=== PATIENT | female | born 1990 | race African-American/Black ===

== ENCOUNTER 2017-10-12 01:58 | Observation (INO) | payer OTHER ==
[2017-10-12 02:20] LABS: #Basophils 0.1 thou/uL (0.0-0.2); #Eosinphils 0.2 thou/uL (0.0-0.7); #Lymphocytes 1.7 thou/uL (1.20-3.40); #Monocytes 0.6 thou/uL (0.11-0.59); #Neutrophils 5.9 thou/uL (1.40-6.50); %Basophils 0.8 % (0.0-1.0); %Lymphocytes 20.5 % (21.0-51.0); %Neutrophils 69.8 % (42.0-75.0); Hemoglobin 11.3 g/dL (12.0-16.0); Mean Corpuscular Hemoglobin 31.8 pg (27.0-31.0); Mean Corpuscular Volume 90.9 fL (78.0-98.0); Mean Platelet Volume 7.9 fL (7.4-10.4); Platelet Count 169 thou/uL (130-400); RBC Distribution Width 12.7 % (11.5-14.5); Red Blood Cell (RBC) Count 3.55 mill/uL (4.20-5.40); White Blood Cell (WBC) Count 8.5 thou/uL (4.8-10.8)
[2017-10-12 02:21] LABS: BHCG - Serum POSITIVE (NEGATIVE); Pregs Control Background? CLEAR/WHITE (CLR/WHITE); Pregs Control Bar Appear? YES (CONTROL BAR)
[2017-10-12] MEDS ORDERED: Naloxone HCl 2 mg/2 ml Syringe ONE (02:30)
[2017-10-12 02:37] LABS: Acetaminophen Less than 6.0 mcg/mL (10.0-30.0); Alcohol Less than 10 mg/dL (Less than 10); CK (CPK) 330 U/L (29-168); Lipase 25 U/L (8-78); Salicylate Less than 8.0 mg/dL (15.0-30.0)
[2017-10-12 02:38] LABS: ALT (SGPT) 19 U/L (8-55); AST (SGOT) 19 U/L (5-34); Albumin 3.6 g/dL (3.5-5.0); Alkaline Phosphatase 67 U/L (40-150); Anion Gap 12 mmol/L (10-20); BUN (Urea Nitrogen) 6 mg/dL (7.0-18.7); Bilirubin, Total 0.6 mg/dL (0.2-1.2); Calc. Creatinine Clearance 0 mL/min (70-130); Calcium 9.1 mg/dL (7.8-10.44); Carbon Dioxide 24 mmol/L (22-29); Chloride 104 mmol/L (98-107); Estimated GFR-MDRD Greater than 90; Globulin 3.5 g/dL (2.4-3.5); Glucose 92 mg/dL (70-105); Potassium 3.2 mmol/L (3.5-5.1); Protein, Total 7.1 g/dL (6.0-8.3); Sodium 137 mmol/L (136-145)
[2017-10-12 03:09] LABS: Bilirubin Negative (Negative); Blood, Urine Negative (Negative); Clarity CLOUDY (Clear); Glucose, Urine (Dipstick) Negative (Negative); Leukocyte Moderate (Negative); Nitrite Negative (Negative); Protein, Urine (Dipstick) 30 mg/dL (Neg-Trace); Specific Gravity, Urine 1.022 (1.002-1.036)
[2017-10-12 03:10] LABS: Pathc Cast-AUWi Flag 0.72 (0-2.49); Squamous Epithelial 0-3 HPF (0-3)
[2017-10-12 03:19] LABS: Amphetamine Detected (NotDetected); Barbiturates Screen Not Detected (NotDetected); Benzodiazepine Screen Detected (NotDetected); Cocaine Metabolite Screen Detected (NotDetected); Medtox Control Line Valid? VALID (VALID); Medtox Reader # READER 1; Methadone Not Detected (NotDetected); Methamphetamine Detected (NotDetected); Opiate Screen Not Detected (NotDetected); Oxycodone Screen Not Detected (NotDetected); Phencyclidine (PCP) Not Detected (NotDetected); THC/Cannabinoid Screen Detected (NotDetected); Tricyclic Screen Detected (NotDetected)
[2017-10-12 03:29] LABS: Hyaline Casts/LPF NONE SEEN LPF (0-3 Hyaline); RBC/HPF 0-3 HPF (0-3)
[2017-10-12 03:30] LABS: Bacteria/HPF Rare-Few HPF (None Seen)
[2017-10-12] MEDS ORDERED: cefTRIAXone\\ROCEPHIN 1 GM VIAL ONE (04:16)
[2017-10-12] MEDS ORDERED: Sodium Chloride 0.9% 100 ML ONE (04:16)
--- NOTE | 2017-10-12 05:59 | PDOC.EVN ---
Event Note - Event Note Event Note: BRIEF ACCEPT NOTE FROM ER/HISTORY AND PHYSICAL I recieved a call from Dr Rapp (ER ED) at approx 0500 (prior to me attending another delivery) that Ms Prescott had arrived to the ED with attempted suicide attempt. 26 yo with limited HX due to state. UTOX positive for cocaine, THC, TCA, benzos. Time of injection and amount unclear. She has been cleared by ER. Doppler FHTs there were normal. No evidence PTL or abruption at this time. Poison control aware and so is [facility]. [facility] will see her to assess transfer after our observation time is complete. I have discussed case with our rim fire charger operator and Dr Rapp. We will transfer to L&D for extended OBS to make sure PTL does not start, and watch BPs. She did not recieve any medication reveral in ED but did get Rocephin IV for possible UTI. We will assess which labs are needed in L&D but include all routine OB and possibly VP3, GC/Chl. Unsure who were OBGYN is, if any. Awaiting patient arrival.
--- NOTE | 2017-10-12 07:24 | PDOC.LDHP ---
Labor and Delivery H&P Chief complaint: other (Here s/p multidrug use/attempted suicide) HPI: Please see my interim H&P note previously. MR aware that the patient is here. Patient states she "never wanted this baby". Took "2 bars of Xanax". She was found in her sister's car...brought in by EMS. She does not know EDC. Suspected 24 weeks? 26 yo ...father of baby not involved.No VB, no CTX. Saw a "female doctor" at [facility] earlier in this but stopped going. She states her given due date was 01/21...placing her at 25 weeks 4 days now Patient is able to answer questions but still somewhat sedated. Current gestational age (weeks): 25 (4 days) Due date: 01/21/18 Grav: 2 OB History Details: prior CS x [address] Summers who was at [facility] then. Current complications: other (limited PNC) Current medications: pre- vitamins, other (has "Anxiety Meds" when needed) Previous surgical history: low tranverse CS (2012) Allergies/Adverse Reactions: Allergies Allergy/AdvReac Type Severity Reaction Status Date / Time No Known Allergies Allergy Unverified 03/07/13 20:40 Social history: drug use (See lab UDS screen) - Physical Exam Vital signs reviewed and normal: yes General: NAD Heart: RRR Lungs: CTAB Abdomen: gravid FHT: variability present (reactive for EGA) Cherry Log contractions every: no contractions - Assessment 25 weeks 4 days, prior CS X1 s/p drug overdose. Apparently, was found by EMS and brought in. She was in a parked car. No evidence abruption or elevated pressures at this time. No VB. - Plan Plan: observation in L&D, other (We will observe for today until patient more alert. I have ordered VP3, GC/Cgl vaginal, routine OB labs. Sono has been ordered and results pending. [facility] needed for disposition.)
[2017-10-12] MEDS: Lactated Ringer's 1,000 ML IV SCH ×2 (07:29→17:54)
[2017-10-12 07:32] LABS: HIV (1/2) Antibody/Antigen Non-Reactive (NonReactive); HIV 1/2 INDEX 0.08 S/CO (<1.00); Syphilis Antibody Nonreactive (Nonreactive); Syphilis Antibody Index 0.14 S/CO (<1.00 Non-Reactive)
--- NOTE | 2017-10-12 07:53 | PDOC.EVN ---
Event Note - Event Note Event Note: CHONGO report verbal by on-call MD: Per radiology, composite EGA 24 weeks 5 days but HC is abnormally small at 1% tile and BPD is 3%tile. AC is 53% and FL is 35%. This raises concern for microcephally. Will need MFM eval after clearance here.
[2017-10-12 09:15] VITALS: BMI 41.9
--- NOTE | 2017-10-12 09:31 | ULT ---
PRELIMINARY REPORT/[facility]/EMERGENTY AFTER-HOURS PROCEDURE Addendum created by Rayna Sadler MD on 10/12/2017 7:53 AM Central Time ([place] & [place]) Results of this examination were communicated by phone to Dr. Vasquez at 7:46 AM CDT on 10/12/2017, with the recei vin practitioner acknowledging understanding of exam results. Gross disproportion of cranial biometric measurements in comparison to abdominal circumference and fe mur length was discussed. Initial Report created on 10/12/2017 7:38 AM Central Time ([place] & [place]) US Uterus, Limited CLINICAL HISTORY: 26 years old, female; Signs and symptoms; Lmp or gestational age (in weeks): 25wks; Antepartum compli cations; Other: Possible overdose on xanax, +for multiple drugs; TECHNIQUE: Real-time ultrasound of the maternal uterus (limited) with image documentation. COMPARISON: No relevant prior studies available. FINDINGS: Fetus: Single live intrauterine gestation is present. Gestational age: Average ultrasound age is 24 weeks 5 days with DAGO of 01/27/2018. Last menstrual per iod is reported as 04/16/2017 corresponding to gestational age of 25 weeks 4 days with DAGO of 018. EFW: Estimated weight is 811 g corresponding to 24 weeks 3 days, 34%. Position: Position is cephalic. Heart rate: Cardiac activity is detected with heart rate of 139 beats per minute. Biometrics: Umbilical artery resistive index is 0.75. S/D. ratio is 3.8. Three-vessel umbilical cord anatomy is visualized. Femur length is 4.7 cm corresponding to 25 weeks 4 days, 35%. The cisterna mag na measures 0.6 cm. Transverse cerebellar diameter is 2.8 cm. Intracranial lateral ventricle diameter is 0.4 cm. Biparietal diameter is 5.8 cm corresponding to 23 weeks 6 days, 3%. Head circumference is 21.6 cm corresponding to 23 weeks 5 days, 1%. Abdominal circumference is 21.7 cm corresponding to 25 weeks 6 days, 52%. Head circumference/abdominal circumference is below the 5th percentile. Placenta: The placenta is anterior. There is no retro-placental collection and no evidence of placent a previa. Color Doppler interrogation of the placenta is not performed. Amniotic fluid: Amniotic fluid index is 14.3 cm. Cervix: Cervical length is approximately 5.3 cm as measured by the interpreting radiologist. There is no cervical funneling. The cervical canal is approximately 0.2 cm diameter. Bladder: The maternal urinary bladder is normal as visualized. Other findings: The diaphragm, abdominal wall at the cord insertion, and facial structures are not evaluated. As visualized, kidneys are normal without hydronephrosis. Longitudinal imaging of the spine is provided. Visualized spine segments appear anatomic in this plan e. Normal situs is demonstrated. 4 cardiac chambers are visualized but evaluation is suboptimal on single provided image. The urinary bladder is anatomic. IMPRESSION: 1. Single live intrauterine gestation with normal heart rate. Average ultrasound age is 24 week s 5 days, in comparison with gestational age by LMP of 25 weeks 4 days. 2. Head circumference and biparietal diameter are below the mean, at the 1st and 3rd percentiles resp ectively. HC/AC ratio is below the 5th percentile. This warrants close surveillance imaging and prena jaron obstetrical care given history of maternal drug exposure. 3. anatomic survey as outlined in detail above. Notably four-chamber cardiac anatomy is seen bu t suboptimally visualized. The diaphragm, abdominal wall at the cord insertion and facial struc tures are not evaluated. 4. Normal amniotic fluid index. Thank you for allowing us to participate in the care of your patient. Dictated and Authenticated by: Rayna Sadler MD 10/12/2017 7:38 AM Central Time ([place] & [place]) FINAL REPORT EMERGENT AFTER HOURS OB ULTRASOUND: FINDINGS/IMPRESSION: I agree with the findings and impression given in the preliminary report per [facility] physician. There is a single live intrauterine with estimated age of 24 weeks 5 days. An incomplete s urvey was performed which is unremarkable. There is slight discrepancy in the biometric measur ements. POS: [facility]
[2017-10-12] MEDS: metroNIDAZOLE 500 MG TAB PO SCH ×3 (11:43→21:30)
--- NOTE | 2017-10-12 12:08 | PRG ---
DATE OF SERVICE: 10/12/2017 PRIMARY OB: None. HISTORY OF PRESENT ILLNESS: The patient is a 26-year-old female with an intrauterine at 25 weeks and 4 days by an ultrasound today who was admitted to the hospital after being found obtunded in a parked car. Evaluation showed multiple drugs on board including tricyclic antidepressants, methamphetamines, cocaine, marijuana, and benzodiazepines. There is concern that the patient may have attempted to take her life and [facility] was contacted for evaluation. In my conversation with the patient, the patient was able to answer questions with some effort; however, easily fell back to sleep. She reports that she was very depressed yesterday and she took a lot more drugs than she normally takes and then went driving in her sister's car. The patient would not answer whether she is trying to take her life or not. She does report a long history of drug use since the of her mother about 3-4 years ago. She is 25 weeks and has no desire to keep the . She has very little recollection of any other events yesterday. Vital signs on my shift here in the hospital last 3 hours have remained stable. She has had a heart rate in the 70s-90s with O2 sats 98%-99% on room air. Last blood pressure was 130/63 at 10:30 this morning. Patient has eaten breakfast or has had something to eat during her stay. [facility] has come now to speak with Ms. Prescott. Ms. Prescott has shared with the [facility] individual that she did try taking as many drugs that she had access to try to end her life. [facility] at this time is attempting to help find placement for inpatient care for Ms. Prescott. From a medical standpoint, she is stable. Labs did return back with positive for Trichomonas and bacterial vaginosis, which can be treated with an oral antibiotic. I will place her on 500 mg of metronidazole to be taken twice a day for the next week. Her other lab work has all returned negative. Blood type is AB positive. Syphilis is nonreactive. HIV is nonreactive. LABORATORY DATA: TSH is 2.66 within normal limits. LFTs within normal limits. Her spot blood sugar is 92. Her creatinine is 0.87, hemoglobin is 11.3, hematocrit 32.3, platelets 169,000. IMAGING: Ultrasound report came back with measurements and is noted to have a biparietal diameter disproportionately small to the rest of the measurements at first and third percentile for head circumference and biparietal diameter ASSESSMENT AND PLAN: The patient is a 26-year-old female who was brought to the emergency room for non-responsiveness and was found to have multiple drugs in her system. There is concern that the patient attempted suicide per the interview with the individual from [facility]. She has intrauterine at 25 weeks with a disproportionately small head and may have microcephaly and will need followup imaging to confirm these findings and likely a maternal medicine on consultation for further recommendations. [facility] is attempting right now to find inpatient care for this individual for her emotional and mental state. Patient has no care established at this time; however, she did see [facility]'s Jeremiah a couple times early in this . The patient's obstetric care does not require any immediate outpatient care at this time, though she does no need to establish care with an OB provider and likely will be referred to Maternal Medicine. GERARDO
[2017-10-12] MEDS ORDERED: Acetaminophen 500 MG TAB PO PRN (15:10)
[2017-10-12] MEDS ORDERED: Potassium Chloride 20 MEQ TAB PO SCH (21:00)
[2017-10-12 21:18] VITALS: BP 122/80; TEMP 98.3
[2017-10-13] MEDS ORDERED: Prenatal Vitamin 1 TAB PO SCH (09:00)
--- NOTE | 2017-10-13 18:29 | DIS ---
DATE OF ENCOUNTER: 10/12/2017. DATE OF ADMISSION: 10/12/2017. HOSPITAL COURSE: The patient is a 26-year-old female who was brought in by EMS to the emergency room after being found somnolent. She was noted to have multiple drugs in her system and after being cleared in the emergency room, was brought to Labor and Delivery for evaluation. The patient ultimately admitted to [facility] attempt and yesterday evening was transferred to [facility] yesterday evening. The patient's vital signs at time of discharge was 122/80, 98.3 is the temperature, pulse is 78, satting 99% on room air. At my last encounter, the patient was alert, oriented, talking on the phone, enjoying some time with her family. The patient had changed from not wanting to be admitted to being accepting as the help that she was being offered. The patient was diagnosed during her stay with Trichomonas and bacterial vaginosis and was placed on metronidazole 500 mg to be taken twice a day for the next week. GC and chlamydia are still pending. Her rubella status is still pending. Patient was discharged to the [facility] around 10:00 last night. The only prescription that she will be required to take at this time is metronidazole 500 mg twice a day. She has been given instructions to follow up with her primary OB. Of note, during her stay, the patient had a evaluation including an ultrasound for anatomy and growth and was noted to have some concern on the findings of her head. The baby's head was smaller than normal. I will need to repeat this ultrasound to confirm findings. I did a bedside ultrasound and found that the head and biparietal diameter were only a week behind the abdomen. GERARDO
[2017-10-15 20:16] LABS: Chlamydia by PCR Not Detected (NotDetected); GC by PCR Not Detected (NotDetected)
== END 2017-10-12 22:51 ==
LOC: ERS 01:58 → L&D 07:30 → T4-B 13:32
PROVIDERS: ADMIT Hospitalist; ATTEND Hospitalist
DX: O9A.212 Injury, poisoning and certain other consequences of external causes complicating pregnancy, second trimester (principal); T50.902A Poisoning by unspecified drugs, medicaments and biological substances, intentional self-harm, initial encounter; Z3A.25 25 weeks gestation of pregnancy
CPT/HCPCS: 36415; 59025; 76815; 80053; 80306; 80307; 81003; 81015; 82550; 83690; 84443; 84703; 85025; 86762; 86780; 86900; 86901; 87389; 87480; 87491; 87510; 87591; 87660; 93005; 96361; 96365; 96375; A4353; G0378; J0696; J2310; J7050

== ENCOUNTER 2018-01-16 11:15 | Day surgery (SDC) | payer OTHER ==
[2018-01-16 11:54] VITALS: BP 118/72; TEMP 99.3; BMI 46.3
--- NOTE | 2018-01-16 18:44 | PRG ---
DATE OF SERVICE: 01/16/2018 PRIMARY BARGE MASTER: Dr. Tesha Hawk at [facility]. CHIEF COMPLAINT: Abdominal pains. HISTORY OF PRESENT ILLNESS: The patient is a 27-year-old G2, P1 female with an intrauterine pregnanc y at 39 weeks and 2 days who is presenting today with lower abdominal pain and lower back pain that i s sharp in nature and exacerbated by activity. The patient denies uterine contractions or labor pain s. The patient just was recommended to come after calling the clinic. The patient denies leakage of fluid or vaginal bleeding. She reports good movement. She denies any fever, fall, headache, chest pain, shortness of breath. She has had some nausea and vomiting in recent days. Denies diarrh ea or constipation. The patient denies urinary urgency. She denies musculoskeletal pains. PAST MEDICAL HISTORY: Negative. PAST SURGICAL HISTORY: Prior . SOCIAL HISTORY: Denies drug, alcohol or tobacco use. MEDICATIONS: The patient is taking medications for depression and is under the care of [facility], unsure what that is. ALLERGIES: TRAMADOL. OB LABS: Blood type is AB positive, antibody screen is negative. RPR is reactive in the first trime ster. HIV is nonreactive in the first trimester. She is rubella immune. GC and chlamydia are negat ida. Drug screen is positive. SOCIAL HISTORY: The patient has a recent history of suicide attempt in this with multiple drug use and inpatient psychiatric care. The patient denies any drug use since that time. REVIEW OF SYSTEMS: Per HPI. PHYSICAL EXAMINATION: VITAL SIGNS: Blood pressure is 131/76, heart rate of 86, respiratory rate of 16, satting 99% on room air, temperature 99.2. GENERAL: She appears to be in no acute distress. She is alert and oriented, cooperative and pleasan t to interact with. HEENT: Normocephalic, atraumatic. LUNGS: Clear to auscultation bilaterally. HEART: Regular rate and rhythm. ABDOMEN: Has some tenderness with deviation of the uterus. She has SI joint tenderness. She has a lumbar paravertebral tenderness to palpation. EXTREMITIES: Nontender. Her cervical exam is 1 thick and -3 station. heart tracing performed for abdominal pain in . The patient is noted to have a fetus with a baseline in the 130s with positive 15 x 15 accelerations and no decelerations. Tocometer does not show any contractions. ASSESSMENT AND PLAN: The patient is a 27-year-old G2, P1 female with an intrauterine at 39 weeks and 2 days with musculoskeletal pain of . She does have a history of prior and is scheduled for repeat in about 1 week. The patient reports that she is doing much b dinesh since the time we last saw her during her multidrug overdose and believes that her counseling a nd her medications have helped tremendously. The patient was offered pain medication to help in the short term, but has declined. The patient has no evidence of labor. She is being discharged to home . Fetus has a reactive NST and category 1 tracing.
== END 2018-01-16 12:37 | disposition home or self-care (01) ==
LOC: L&D/OP 11:15
PROVIDERS: ATTEND Student in an Organized Health Care Education/Training Program
DX: O99.89 Other specified diseases and conditions complicating pregnancy, childbirth and the puerperium (principal); R10.30 Lower abdominal pain, unspecified; M54.5 Low back pain; Z3A.39 39 weeks gestation of pregnancy; Z79.899 Other long term (current) drug therapy; Z88.5 Allergy status to narcotic agent
CPT/HCPCS: 99283

== ENCOUNTER 2018-01-20 04:43 | Inpatient (IN) | payer OTHER ==
[2018-01-20] MEDS ORDERED: NS / Oxytocin 40 units/1000ml 1,000 ML IV PRN (06:02)
[2018-01-20] MEDS ORDERED: Ibuprofen 800 MG TAB PO PRN (06:02)
[2018-01-20] MEDS ORDERED: Lidocaine 1% (PF) 30 ML VIAL SC PRN (06:02)
[2018-01-20] MEDS ORDERED: Ondansetron HCl/PF 4 MG/2 ML Vial IVP PRN ×4 (06:02→11:02)
[2018-01-20] MEDS ORDERED: HYDROcodone/Acetaminophen 5/325 mg Tablet PO PRN ×2 (06:02)
[2018-01-20] MEDS ORDERED: NS w/ Oxytocin 10 units 500 ML IV SCH (06:15)
[2018-01-20] MEDS ORDERED: Bicitra 30 ML UDCUP PO SCH (06:15)
[2018-01-20] MEDS ORDERED: Dextrose 5%-Lactated Ringers 1,000 ML IV SCH (06:15)
[2018-01-20] MEDS ORDERED: CEFAZOLIN/Water 2 GM/20 ML SYRINGE SLOW IVP SCH (06:15)
[2018-01-20] MEDS ORDERED: Lactated Ringer's 1,000 ML IV SCH (06:15)
[2018-01-20 06:22] LABS: Hemoglobin 9.4 g/dL (12.0-16.0); Mean Corpuscular HGB CONC 32.6 g/dL (32.0-36.0); Mean Corpuscular Hemoglobin 28.1 pg (27.0-31.0); Mean Corpuscular Volume 86.3 fL (78.0-98.0); Mean Platelet Volume 8.8 fL (7.4-10.4); Platelet Count 214 thou/uL (130-400); RBC Distribution Width 14.1 % (11.5-14.5); Red Blood Cell (RBC) Count 3.33 mill/uL (4.20-5.40); White Blood Cell (WBC) Count 7.8 thou/uL (4.8-10.8)
[2018-01-20] MEDS ORDERED: CEFAZOLIN 3 GM in Sodium Chloride 0.9% 100 ML IVPB SCH (06:45)
[2018-01-20 06:50] LABS: HBSAg Index 0.18 S/CO (0-0.99); Hep B Surf Ag Non-Reactive S/CO (NonReactive)
[2018-01-20 06:51] LABS: Syphilis Antibody Nonreactive (Nonreactive); Syphilis Antibody Index 0.19 S/CO (<1.00 Non-Reactive)
[2018-01-20] MEDS ORDERED: Morphine PF 1 MG/ML SYR ONE (06:51)
[2018-01-20] MEDS ORDERED: Lidocaine 1% PF 5 ML VIAL ONE (06:52)
[2018-01-20] MEDS ORDERED: ePHEDrine/0.9% NaCl/PF SYRINGE 50 mg/10 ml ONE ×2 (06:52→12:06)
[2018-01-20] MEDS ORDERED: Ketorolac Tromethamine 30 MG/ML VIAL ONE ×2 (06:52→12:06)
[2018-01-20] MEDS ORDERED: Ondansetron HCl/PF 4 MG/2 ML Vial ONE ×2 (06:52→12:06)
[2018-01-20] MEDS ORDERED: Bupivacaine 0.75% W/DEXTROSE 8.25% 2 ML AMP ONE (06:52)
[2018-01-20] MEDS ORDERED: Oxytocin 10 UNITS/ML VIAL ONE ×2 (06:52→08:18)
[2018-01-20] MEDS ORDERED: PHENYLEPHRINE-NS 100 MCG/ML 10 ML SYRINGE ONE ×2 (06:52→12:06)
[2018-01-20] MEDS ORDERED: CEFAZOLIN/Water 2 GM/20 ML SYRINGE ONE (07:00)
[2018-01-20] MEDS ORDERED: Midazolam HCl 2 mg/2 ml Vial ONE (07:17)
[2018-01-20] MEDS ORDERED: PROPOFOL 0 ML ONE (07:17)
--- NOTE | 2018-01-20 07:17 | PDOC.LDHP ---
Labor and Delivery H&P Chief complaint: scheduled section HPI: 27yo at 39w6d by LMP c/w 9w sono for RCS due to prior CS x 1, declines TOLAC. Current gestational age (weeks): 39 Due date: 01/21/18 Dating criteria: last menstrual period Grav: 2 Para: 1 OB History Details: previous admission in September for polysubstance abuse to [facility], CPS involved, pt has been in therapy at [facility] and denies drug use , has had negative drug screens. Current complications: none Abnormal US findings: No Past Medical History: schizoaffective d/o, depression, anxiety- f/b [facility], prev on meds but self d/c' d. Obesity Current medications: pre-angy vitamins Previous surgical history: low tranverse CS Allergies/Adverse Reactions: Allergies Allergy/AdvReac Type Severity Reaction Status Date / Time No Known Allergies Allergy Verified 01/20/18 06:29 Social history: tobacco use, drug use (cocaine, THC, meth) - Physical Exam Vital signs reviewed and normal: yes General: NAD Heart: RRR Lungs: CTAB Abdomen: gravid Extremeties: no edema FHT: category 1 Pence contractions every: rare - OB Labs Blood type: AB RH: positive Antibody Screen: negative HIV: negative RPR: negative HEPSAg: negative 1 hour GCT: negative GBS: unknown Urine drug screen: positive Rubella: immune - Assessment L&D Assessment: scheduled repeat section - Plan Plan: admit to L&D, to OR for section, informed consent obtained, anesthesia consult for pain management -: UDS and case mgmt consult
[2018-01-20 07:48] LABS: Medtox Reader # READER 1; Phencyclidine (PCP) Not Detected (NotDetected); THC/Cannabinoid Screen Not Detected (NotDetected)
[2018-01-20 07:49] LABS: Amphetamine Not Detected (NotDetected); Barbiturates Screen Not Detected (NotDetected); Benzodiazepine Screen Detected (NotDetected); Cocaine Metabolite Screen Detected (NotDetected); Medtox Control Line Valid? VALID (VALID); Methadone Not Detected (NotDetected); Methamphetamine Not Detected (NotDetected); Opiate Screen Not Detected (NotDetected); Oxycodone Screen Not Detected (NotDetected); Tricyclic Screen Not Detected (NotDetected)
--- NOTE | 2018-01-20 08:28 | PDOC.OPDEL ---
OB Operative/Delivery Note Delivery Dr/Surgeon: Kenn Assist: Chadwick PGY2 Pre-Delivery Diagnosis: scheduled section Procedure/Post Delivery Dx: repeat low transverse CS Weeks gestation: 39 Anesthesia: spinal - Findings A Sex: male - Additional Findings/Plan Placenta delivered: spontaneous findings: low transverse hysterotomy without extension, normal uterus, normal tubes, normal ovaries Estimated blood loss: 800cc, qbl pending Post delivery plan: routine recovery
[2018-01-20] MEDS ORDERED: Naloxone HCl 0.4 mg/ml Vial IVP PRN ×2 (08:39)
[2018-01-20] MEDS ORDERED: Promethazine HCl 25 MG SUPP PR PRN (08:39)
[2018-01-20] MEDS ORDERED: diphenhydrAMINE 50 MG/ML VIAL IVP PRN (08:39)
[2018-01-20] MEDS ORDERED: HYDROmorphone 2 MG/ML VIAL SLOW IVP PRN (08:39)
[2018-01-20] MEDS ORDERED: Promethazine HCl 25 MG/ML VIAL IM PRN (08:39)
[2018-01-20] MEDS ORDERED: Meperidine HCl/PF 25 MG/ML VIAL SLOW IVP PRN (08:39)
[2018-01-20] MEDS ORDERED: Eucerin (Mineral Oil/Petrolatum,White) 30 gm Jar TOP PRN (08:39)
[2018-01-20] MEDS ORDERED: Naloxone HCl 0.4 mg/ml Vial IV PRN (08:39)
[2018-01-20] MEDS ORDERED: Communication Order-Pharmacy FS SCH (08:45)
[2018-01-20] MEDS ORDERED: Ketorolac Tromethamine 30 MG/ML VIAL IVP SCH (08:45)
[2018-01-20] MEDS ORDERED: Bisacodyl 10 MG SUPP PR PRN (11:02)
[2018-01-20] MEDS ORDERED: Acetaminophen 325 MG TAB PO PRN (11:02)
[2018-01-20] MEDS ORDERED: Lanolin Ointment 7 GM TUBE TOP PRN (11:02)
[2018-01-20] MEDS ORDERED: Adacel (T-DAP) 0.5 ML VIAL IM ONE (11:02)
[2018-01-20] MEDS ORDERED: NS / Oxytocin 40 units/1000ml 1,000 ML IV SCH (11:02)
[2018-01-20] MEDS ORDERED: Simethicone Chewable 80 MG TAB PO PRN (11:02)
[2018-01-20] MEDS: Prenatal Vitamin 1 TAB PO SCH (11:21)
[2018-01-20] MEDS: Docusate Calcium (SURFAK) 240 MG CAP PO SCH ×2 (11:21→19:40)
[2018-01-20] MEDS: Ketorolac Tromethamine 30 MG/ML VIAL IVP PRN ×2 (13:41→19:39)
[2018-01-20] MEDS: diphenhydrAMINE 25 MG CAP PO PRN (19:45)
[2018-01-20] MEDS ORDERED: Acetaminophen/Codeine 30-300mg Tablet PO PRN (20:45)
[2018-01-20] MEDS ORDERED: Zolpidem Tartrate 5 MG TAB PO PRN (20:45)
[2018-01-21] MEDS: diphenhydrAMINE 25 MG CAP PO PRN (04:26)
[2018-01-21] MEDS: Ketorolac Tromethamine 30 MG/ML VIAL IVP PRN (04:27)
[2018-01-21] MEDS: Sodium Chloride 0.9% 20 ML ONE ×2 (04:28→04:31)
[2018-01-21 05:51] LABS: Hemoglobin 8.7 g/dL (12.0-16.0); Mean Corpuscular HGB CONC 32.6 g/dL (32.0-36.0); Mean Corpuscular Hemoglobin 27.9 pg (27.0-31.0); Mean Corpuscular Volume 85.5 fL (78.0-98.0); Mean Platelet Volume 9.7 fL (7.4-10.4); Platelet Count 140 thou/uL (130-400); RBC Distribution Width 13.7 % (11.5-14.5); Red Blood Cell (RBC) Count 3.13 mill/uL (4.20-5.40); White Blood Cell (WBC) Count 9.2 thou/uL (4.8-10.8)
--- NOTE | 2018-01-21 07:28 | PDOC.PP ---
Post Progress Note Post Day #: 1 PO intake tolerated: yes Flatus: yes Ambulation: yes Vital Signs (12 hours) Temp Pulse Resp BP BP Pulse Ox 01/21/18 04:00 98.5 F 83 20 120/60 01/21/18 02:10 18 01/20/18 23:00 97.9 F 64 18 126/68 01/20/18 22:00 18 01/20/18 19:35 97.7 F 78 20 129/60 100 Weight Weight 280 lb - Physical Examination General: NAD Cardiovascular: RRR Respiratory: non-labored breathing Abdominal: no distention, appropriately TTP Fundus firm & at: umb Extremities: negative homans (B) Skin: CS incision dry & intact Neurological: no gross focal deficits Psychiatric: A&Ox3 Result Diagrams: 01/21/18 05:36 Additional Labs: Post Labs Blood Type AB POSITIVE 01/20/18 06:00 Hep Bs Antigen Non-Reactive S/CO (NonReactive) 01/20/18 06:00 (1) delivery delivered Code(s): O82 - ENCOUNTER FOR DELIVERY WITHOUT INDICATION Status: Acute - Assessment/Plan POD1 s/p RCS at 39w VSSAF Hb 9.4-->ebl 500-->8.7, appropriate post surgery, acute on chronic iron deficiency anemia. Cont PNV and Iron Routine postop advances UDS pos for cocaine and benzos, CPS consult pending Rh pos RImm Cont PP care.
[2018-01-21] MEDS: Prenatal Vitamin 1 TAB PO SCH (07:43)
[2018-01-21] MEDS: Docusate Calcium (SURFAK) 240 MG CAP PO SCH ×2 (07:43→19:43)
[2018-01-21] MEDS: Acetaminophen/Codeine 30-300mg Tablet PO PRN ×4 (07:43→23:55)
[2018-01-21] MEDS: Ibuprofen 800 MG TAB PO SCH ×2 (13:42→21:51)
[2018-01-22] MEDS: Acetaminophen/Codeine 30-300mg Tablet PO PRN ×5 (04:32→22:32)
[2018-01-22] MEDS: Docusate Calcium (SURFAK) 240 MG CAP PO SCH ×3 (09:10→21:50)
[2018-01-22] MEDS: Prenatal Vitamin 1 TAB PO SCH ×2 (09:11→09:52)
[2018-01-22] MEDS: Ibuprofen 800 MG TAB PO SCH ×3 (09:26→21:50)
--- NOTE | 2018-01-22 09:52 | PDOC.PP ---
Post Progress Note Post Day #: 2 Subjective: pt is tearful because children are being removed from home, min pain, no nausea or vomiting PO intake tolerated: yes Flatus: yes Vital Signs (12 hours) Temp Pulse Resp BP Pulse Ox 01/22/18 07:54 98.7 F 75 20 115/59 L 98 Weight Weight 280 lb - Physical Examination General: NAD Respiratory: non-labored breathing Abdominal: no distention Fundus firm & at: below umb Extremities: negative homans (B) Skin: CS incision dry & intact Neurological: no gross focal deficits Psychiatric: A&Ox3 Result Diagrams: 01/21/18 05:36 Additional Labs: Post Labs Blood Type AB POSITIVE 01/20/18 06:00 Hep Bs Antigen Non-Reactive S/CO (NonReactive) 01/20/18 06:00 - Assessment/Plan POD2 doing well for CS recovery and healing/meeting goals, however struggling emotionally with removal of children for +UDS. Offered auxiliary engineer services, case management social worker to patient, continue to monitor.
[2018-01-23] MEDS: Acetaminophen/Codeine 30-300mg Tablet PO PRN ×3 (05:54→18:47)
[2018-01-23] MEDS: Ibuprofen 800 MG TAB PO SCH ×3 (05:55→21:43)
[2018-01-23] MEDS: Prenatal Vitamin 1 TAB PO SCH (09:32)
[2018-01-23] MEDS: Docusate Calcium (SURFAK) 240 MG CAP PO SCH ×2 (09:32→21:43)
--- NOTE | 2018-01-23 15:51 | PDOC.PP ---
Post Progress Note Post Day #: 3 PO intake tolerated: yes Flatus: yes Ambulation: yes Vital Signs (12 hours) Temp Pulse Resp BP Pulse Ox 01/23/18 08:06 98.2 F 64 20 136/82 98 Weight Weight 280 lb - Physical Examination General: NAD Cardiovascular: RRR Respiratory: non-labored breathing Abdominal: no distention, appropriately TTP Skin: CS incision dry & intact Neurological: no gross focal deficits Psychiatric: A&Ox3 Result Diagrams: 01/21/18 05:36 Additional Labs: Post Labs Blood Type AB POSITIVE 01/20/18 06:00 Hep Bs Antigen Non-Reactive S/CO (NonReactive) 01/20/18 06:00 (1) delivery delivered Code(s): O82 - ENCOUNTER FOR DELIVERY WITHOUT INDICATION Status: Acute - Assessment/Plan POD3 s/p RCS VSSAF Doing well met all milestones Mild asx acute blood loss anemia on chronic iron def anemia, cont iron and PNV on DC Pain controlled. MDD- prev f/b [facility], unable to obtain list of previous meds however [facility] insisted they come to screen pt. No HI/SI, pt clearly sad in room, wants to work to get children back. Rec starting meds, will start zoloft and have pt fu with [facility] as outpt [facility]. Pos UDS s/p [facility] and CPS, children in states custody due to recurrent drug use. Rh pos RImm Cont Postop care.
[2018-01-24] MEDS: Ibuprofen 800 MG TAB PO SCH (06:23)
--- NOTE | 2018-01-24 07:59 | PDOC.PP ---
Post Progress Note Post Day #: 4 Subjective: feels itchy with tylenol 3. Very emotional with children being taken by CPS. Pt plans to contact [facility] for possible enrollment. No HI/SI. PO intake tolerated: yes Flatus: yes Ambulation: yes Weight Weight 280 lb - Physical Examination General: NAD Cardiovascular: RRR Respiratory: non-labored breathing Abdominal: no distention, appropriately TTP Skin: CS incision dry & intact Psychiatric: A&Ox3 Result Diagrams: 01/21/18 05:36 Additional Labs: Post Labs Blood Type AB POSITIVE 01/20/18 06:00 Hep Bs Antigen Non-Reactive S/CO (NonReactive) 01/20/18 06:00 (1) delivery delivered Code(s): O82 - ENCOUNTER FOR DELIVERY WITHOUT INDICATION Status: Acute - Assessment/Plan POD4 s/p RCS VSSAF Met all postop milestones. Change T3 to tramadol for pain on DC. Hx MDD- will start zoloft, fu with [facility], prev screened and negative for any danger to herself or others. Pos UDS s/p CPS, children in custody. Rhpos RImm DC home FU 2wk with Dr Hawk
[2018-01-24] MEDS: Acetaminophen/Codeine 30-300mg Tablet PO PRN (08:09)
[2018-01-24 08:20] VITALS: BP 140/83; TEMP 99.1
[2018-01-24] MEDS: Docusate Calcium (SURFAK) 240 MG CAP PO SCH (09:11)
[2018-01-24] MEDS: Prenatal Vitamin 1 TAB PO SCH (09:13)
[2018-01-24] MEDS ORDERED: traMADol HCl 50 MG TAB PO PRN ×2 (11:19)
--- NOTE | 2018-01-24 23:08 | OP ---
DATE OF PROCEDURE: 01/20/2018 PREOPERATIVE DIAGNOSES: 1. Intrauterine at 39 weeks and 6 days. 2. Prior x1, declines trial of labor after . 3. Obesity. POSTOPERATIVE DIAGNOSES: 1. Intrauterine at 39 weeks and 6 days. 2. Prior section x1, declines trial of labor after 3. Obesity. PROCEDURE: Repeat low transverse section via Pfannenstiel skin incision. ANESTHESIA: Spinal. ATTENDING SURGEON: Tesha Hawk M.D. JOB PRESS OPERATOR SURGEON: Chadwick PGY-2. ESTIMATED BLOOD LOSS: 800 mL. COMPLICATIONS: None. DRAINS: Dougherty catheter. FINDINGS: Male , cephalic presentation, clear amniotic fluid, Apgars of 8 and 9, weight is 7 p ounds 1 ounce. OPERATIVE TECHNIQUE: The patient was taken to the operating room where spinal anesthesia was obtaine d without difficulty. The patient was prepped and draped in a sterile fashion in the dorsal supine p osition with a leftward tilt. After confirming adequacy of anesthesia, a Pfannenstiel skin incision was made with a knife and carried down to the underlying subcutaneous tissue with a knife. The fasci a was nicked in the midline with a knife and carried laterally with the Jarrett scissors. The superior aspect of the fascia was tented with 2 Kochers and dissected off the rectus with the Jarertt scissors. The inferior aspect of the fascia was tented with 2 Kochers and dissected off the rectus with the Sahra delgadillo scissors down to the pubic symphysis. The peritoneum was bluntly entered into and manually retract ed. The Michael O retractor was placed. There were bladder adhesions to the inferior most lower uter ine segment. The hysterotomy was incised in a transverse fashion just above that and extended with t he Sweet maneuver. The 's head was brought to the hysterotomy and delivered with fundal pressur e followed by the body. The infant was bulb suctioned and delayed cord clamping was performed. The infant's cord was clamped and infant handed to awaiting laura team. Cord blood was obtained and the pl acenta was allowed to spontaneously deliver. The uterus was exteriorized, cleared of all clots and d ebris and posterior cul-de-sac was lapped out. The uterus was placed back into the abdomen. The hys terotomy was closed with #1 Monocryl in a running locking fashion with excellent hemostasis noted. I rrigation was performed of the pelvis and again hemostasis was noted of the hysterotomy. The Michael O retractor was removed out of the abdomen. The rectus muscles were examined and noted to be hemosta tic. The fascia was reapproximated with 0 PDS x2 sutures with excellent reapproximation. The subcut aneous tissue was irrigated and cauterized of any bleeders and reapproximated with a 2-0 plain gut in a running fashion and the skin was closed with 4-0 Monocryl in a subcuticular fashion. Dermabond wa s applied. The patient tolerated procedure well. Sponge, lap, needle counts were correct x2. The p atient was taken to recovery room in stable condition. Patient received Ancef 3 grams prior to proce dure.
== END 2018-01-24 12:45 | disposition home or self-care (01) | DRG 787 ==
LOC: EEVIPCON 04:43 → L&D 04:43 → 3SW 10:55
PROVIDERS: ADMIT Student in an Organized Health Care Education/Training Program; ATTEND Student in an Organized Health Care Education/Training Program
PROC: 10D00Z1 Extraction of Products of Conception, Low, Open Approach (ICD-10-PCS; principal; 2018-01-20)
PROC: 4A0HXCZ Measurement of Products of Conception, Cardiac Rate, External Approach (ICD-10-PCS; 2018-01-20)
DX: O34.211 Maternal care for low transverse scar from previous cesarean delivery (principal); O99.324 Drug use complicating childbirth; D62 Acute posthemorrhagic anemia; O99.214 Obesity complicating childbirth; E66.01 Morbid (severe) obesity due to excess calories; O99.344 Other mental disorders complicating childbirth; F20.9 Schizophrenia, unspecified; F14.90 Cocaine use, unspecified, uncomplicated; F15.90 Other stimulant use, unspecified, uncomplicated; F41.8 Other specified anxiety disorders; O99.02 Anemia complicating childbirth; Z3A.39 39 weeks gestation of pregnancy; Z37.0 Single live birth; D50.9 Iron deficiency anemia, unspecified
CPT/HCPCS: 36415; 51702; 80306; 85027; 86780; 86850; 86900; 86901; 87340; 90471; 90686; A4216; G0008; J0690; J1885; J2001; J2250; J2274; J2405; J2590; J2704; J3490; J7050